=== PATIENT | male | born 1955 | race Caucasian/White ===

== ENCOUNTER → 2018-05-25 | Day surgery (SDC) | payer OTHER ==
--- NOTE | 2018-05-18 15:40 | Diagnostic Imaging Report ---
Frontal and lateral views of the chest - 4 images HISTORY: Preop, hernia COMPARISON: None available. DISCUSSION: Lungs: The lungs are well inflated. No evidence of a consolidative pneumonia or pulmonary alveolar edema. Pleura: No pleural effusion or pneumothorax. Heart and mediastinum: The cardiomediastinal silhouette appears unremarkable. Bones and soft tissues: Mild multilevel degenerative disc changes of the thoracic spine. IMPRESSION: No acute radiographic abnormality. Signed by: Dr. Isaac Sarabia D.O., M.M.M. on 05/18/2018 3:37 PM
[~2018-05-25] MED LIST: ACETAMINOPHEN 1000 MG/100 ML IV ONE; BUPIVACAINE 0.25% 30ML SDV INJ ONE; BUPIVACAINE 0.25%/EPI 30ML SDV INJ ONE; BUPIVACAINE LIPOSOME/PF 266 MG/20 ML IJ ONE; DEXAMETHASONE SOD PHOS INJ 4 MG/ML VIAL ONE; EPHEDRINE SULFATE INJ 50 MG/10 ML SYR ONE; FENTANYL CITRATE/PF 100MCG/2 ML INJ ONE; GLYCOPYRROLATE INJ 1MG/ 5 ML SYR ONE; LABETALOL HCL 20 ML ONE; LEVOTHYROXINE50 MCG PO; LIDOCAINE HCL 2% LOCAL INJ 5 ML SDV VIAL INJ ONE; MIDAZOLAM HCL 2 MG/2 ML VIAL ONE; NEOSTIGMINE 5 MG/5ML SYR ONE; ONDANSETRON HCL INJ 2MG/ML 2ML 2 MG/ML VIAL ONE; PANTOPRAZOLE SO40 MG PO; PROPECIA1 MG; PROPOFOL IV EMULSION 10 MG/ML 20 ML VIAL ONE; ROCURONIUM BROMIDE 10 MG/ML 5ML VIAL ONE; SEVOFLURANE INHAL SOLN 250 ML PEN BTL ONE
--- OUTSIDE RECORDS SUMMARY | 2018-05-25 06:24 | XMS REPORT | Summary of Care ---
Author Author Urgent Care [facility] Address Unknown Phone Unavailable Encounter YEFRI Enriquez(FIN) [id number] Date(s): 08/01/17 - 08/01/17 [facility] [id number] [place] [phone] Discharge Disposition: Home or Self Care Vital Signs Most recent to 1 oldest [Reference Range]: Height 190.5 cm (08/01/17 9:35 AM) Temperature Oral 98.5 DegF [96.4-99.1 DegF] (08/01/17 9:35 AM) Blood Pressure 145/87 mmHg [90-140/60-90 mmHg] *HI* (08/01/17 9:35 AM) Peripheral Pulse 63 bpm Rate [60-100 bpm] (08/01/17 9:35 AM) Weight 108.807 kg (08/01/17 9:35 AM) Body Mass Index 29.98 m2 (08/01/17 9:35 AM) Problem List Condition Effective Dates Status Health Status Informant Acid reflux Resolved disease(Confirmed) Hypothyroidism(Confi Resolved rmed) Allergies, Adverse Reactions, Alerts Substance Reaction Severity Status NKDA Active Medications azithromycin 250 mg oral tablet See Instructions, Take 2 tablets by mouth the first day then 1 tablet by mouth d aily on days 2-5., X 5 day, # 6 tab, 0 Refill(s), Pharmacy: [facility] [id number] Start Date: 08/01/17 Stop Date: 08/06/17 Status: Ordered levothyroxine Daily, 0 Refill(s) Start Date: 08/01/17 Status: Ordered pantoprazole 40 mg, PO, Daily, # 30 tab, 0 Refill(s) Start Date: 08/01/17 Stop Date: 08/31/17 Status: Ordered Results No data available for this section Immunizations No data available for this section Procedures No data available for this section Social History Social History Type Response Smoking Status Never smoker; Exposure to Tobacco Smoke None; Cigarette Smoking Last 365 Days No; Reg Smoking Cessation Counseling No entered on: 08/01/17 Assessment and Plan No data available for this section
--- OUTSIDE RECORDS SUMMARY | 2018-05-25 06:24 | XMS REPORT ---
Author Author [facility] Address Unknown Phone Unavailable Care Team Providers Care Tie Fastener Name Role Phone Leandro ALLEN Unavailable Unavailable Problems This patient has no known problems. Allergies, Adverse Reactions, Alerts This patient has no known allergies or adverse reactions. Medications This patient has no known medications. Results Test Description Test Time Test Comments Text Results Atomic Results Result Comments CHEST 2 VIEWS 2018-05-18 15:35:00 [place] [address] Patient Name: JESSICA QUINONES MR #: [id number] : 1955 Age/Sex: 62/M Req #: [id number] Adm Physician: Ordered by: ROBERT ALLEN MD Report #: [id number] Location: OR Room/Bed: Procedure: [id number] DX/CHEST 2 VIEWS Exam Date: 05/18/18 Exam Time: 1520 REPORT STATUS: Signed Frontal and lateral views of the chest - 4 images HISTORY: Preop, hernia COMPARISON: None available. DISCUSSION: Lungs: The lungs are well inflated. No evidence of a consolidative pneumonia or pulmonary alveolar edema. Pleura: No pleural effusion or pneumothorax. Heart and mediastinum: The cardiomediastinal silhouette appears unremarkable. Bones and soft tissues: Mild multilevel degenera tive disc changes of the thoracic spine. IMPRESSION: No acute radiographic abnormality. Signed by: Dr. Kaz Sarabia D.O., M.M.M. on 05/18/2018 3:37 PM Dictated By: KAZ SARABIA DO 153 Transcribed By: NADER on 05/18/181536 COPY TO: ROBERT ALLEN MD
[2018-05-25 12:50] VITALS: BP 158/101
--- NOTE | 2018-05-25 13:02 | Operative Report ---
DATE OF PROCEDURE: 05/25/2018 SURGEON: Hernando Ward MD PREOPERATIVE DIAGNOSES: Umbilical hernia, epigastric hernia and diastasis of the rectus muscles. POSTOPERATIVE DIAGNOSES: Umbilical hernia, epigastric hernia and diastasis of the rectus muscles. OPERATION PERFORMED: Repair of epigastric and umbilical hernias and repair of diastasis recti with Ultrapro mesh. BANANA GRADER: LEW Limon ANESTHESIA: General. COMPLICATIONS: None. ESTIMATED BLOOD LOSS: Minimal. DESCRIPTION OF PROCEDURE: With the patient lying in bed in the supine position under good general endotracheal anesthesia, the abdomen was prepped with Betadine solution and draped in the usual manner. An epigastric midline incision was made, it was carried down through the subcutaneous tissue, immediately an epigastric hernia was identified. This was slowly and carefully dissected circumferentially and the contents were resected along with the hernia sac. After this was done, the umbilicus was then detached from the hernia sac. The umbilical hernia was then dissected circumferentially and the hernia sac was opened and the contents were reduced back to the intraabdominal cavity. At this point, examination through the umbilical hernia revealed the patient had a very severe weakness of the rectus fascia from his diastasis recti, so that the whole thing would have to be repaired in order to prevent any kind of recurrence. At this point the fascia was then cleared all the way around from below the umbilicus all the way up to just below the sternum tip at the xiphoid and after this was done, the two hernia defects were then closed using interrupted sutures of 0 Ethibond and the diastasis was similarly plicated with interrupted sutures of 0 Ethibond until we had a satisfactory repair. The whole thing was then oversewn with an #1 Vicryl suture. Ultrapro mesh was then placed over the entire area and tacked all the way around with interrupted sutures of 0 Ethibond and 0 Vicryl. The whole area was then thoroughly irrigated. Perfect hemostasis was ascertained. All layers were infiltrated on the way out with Exparel and Marcaine. The umbilicus was then tacked back down to the midline with 3-0 Vicryl. The subcutaneous tissue was approximated with 3-0 Vicryl and the skin was closed with clips. A dressing was applied. The sponge, lap, and needle count was correct. The patient tolerated the procedure well and returned to the recovery room in stable condition. MD JOE Dhaliwal/YOLA /[id number]
== END | disposition home or self-care (01) ==
LOC: OR 06:22
PROVIDERS: ATTEND Surgery
DX: K42.9 Umbilical hernia without obstruction or gangrene (principal); K43.9 Ventral hernia without obstruction or gangrene; Z01.810 Encounter for preprocedural cardiovascular examination; Z01.812 Encounter for preprocedural laboratory examination; Z01.811 Encounter for preprocedural respiratory examination; E66.9 Obesity, unspecified; M62.08 Separation of muscle (nontraumatic), other site
CPT/HCPCS: 22999; 49585; 71046; C1781; C9290; J0131; J1100; J2001; J2250; J2405; J2704; J3490 ×2